=== PATIENT | male | born 1985 | race Caucasian/White ===

== ENCOUNTER 2018-12-31 21:18 | Emergency (ER) | payer OTHER ==
[~2018-12-31] VITALS: Ht 182.9 cm; Wt 100.0 kg
[2019-01-01] MEDS ORDERED: SODIUM CHLORIDE 0.9% 1,000 ML IV ONE (01:15)
[2019-01-01] MEDS ORDERED: ONDANSETRON HCL 4MG/2ML INJ IV ONE (01:15)
[2019-01-01] MEDS ORDERED: KETOROLAC 15MG/ML VIAL IV ONE (01:15)
[2019-01-01 04:30] VITALS: BP 115/72
== END 2019-01-01 04:41 | disposition home or self-care (01) ==
LOC: ER 21:18
DX: B34.9 Viral infection, unspecified (principal)
CPT/HCPCS: 96374; 96375; 99283; J1885; J2405; J7030